=== PATIENT | female | born 1955 | race African-American/Black ===

== ENCOUNTER 2019-06-03 18:40 | Emergency (ER) | payer OTHER ==
[~2019-06-03] VITALS: Ht 160 cm; Wt 99.8 kg
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
--- NOTE | 2019-06-03 21:24 | Diagnostic Imaging Report ---
Left ankle radiographs 3 views, left tib-fib radiograph 2 views HISTORY: Pain. COMPARISON: None available. FINDINGS: Bones: No acute displaced fracture. Osseous alignment is within normal limits. Joints: The joint spaces are well-maintained. Osteophytes in the ankle and hindfoot. Soft tissues: Achilles and plantar calcaneal enthesophytes. Mild soft tissue swelling about the ankle. Focal calcification at the tip of the medial malleolus. IMPRESSION: 1. No acute radiographic osseous abnormality. 2. Mild soft tissue swelling about the ankle. 3. Plantar and Achilles tendon enthesopathy at the calcaneus. 4. Degenerative changes in the ankle and hindfoot. Signed by: Brett Nunez DO on 06/03/2019 9:21 PM
[2019-06-03 22:00] VITALS: BP 150/79
[2019-06-03] MEDS ORDERED: HYDROCODONE/APAP 5MG-325MG TAB PO ONE (22:00)
== END 2019-06-03 22:10 | disposition home or self-care (01) ==
LOC: ER 18:40
DX: S93.492A Sprain of other ligament of left ankle, initial encounter (principal); X50.1XXA Overexertion from prolonged static or awkward postures, initial encounter; W01.0XXA Fall on same level from slipping, tripping and stumbling without subsequent striking against object, initial encounter; Y92.488 Other paved roadways as the place of occurrence of the external cause
CPT/HCPCS: 99283